=== PATIENT | female | born 1990 | race Caucasian/White ===

== ENCOUNTER 2022-03-11 07:57 | Inpatient (IN) ==
[2022-03-11] MEDS ORDERED: OXYTOCIN 30 UNITS/500 ML BAG IV PRN ×3 (08:01→22:44)
[2022-03-11] MEDS ORDERED: LIDOCAINE 1% LOCAL 20 ML VIAL INFIL PRN (08:01)
--- NOTE | 2022-03-11 08:23 | History & Physical Report ---
Date of Service March 11, 2022 Assessment & Plan (1) Encounter for induction of labor: Plan: -Admit, iv, labs. fhts categ1. start pitocin, consider arom -Manley balloon placed (2) Gestational diabetes: Plan: -Blood glucose 133 on admission. Will do Q4 checks (3) Uterine fibroid: Plan: -Plan to attempt vaginal delivery Admission and Anticipated Discharge Date Admission Date: March 11, 2022 History of Present Illness Chief Complaint: Induction of labor Primary Care Provider: Jamie Torres MD 31 y/o @ 40+ weeks confirmed via ultrasound on 03/08. Here for induction. Complications with this include GDM, fibroids, asthma, and migraines. Has been attending OB appointments regularly. Contractions: none Fluid or Blood loss: none Movement: active Labs - Blood type: A+ - Antibody screen: negative - H.8 - Hct: 38.2 - Wbc: 8.5 - Plt: 158 - Rubella: immune - VDRL/RPR: negative - Gonorrhea: negative - Chlamydia: negative - HIV: negative - HbSAg: negative - GBS: negative -maternal serum AFP: 47.4 on 09/28 -AFP MoM: 1.34 on 09/28 Allergies Allergy/AdvReac Type Severity Reaction Status Date / Time No Known Allergies Allergy Verified 03/10/22 10:37 Home Medications Medication Instructions Recorded Confirmed Type acetone (urine) test (Ketone Urine #50 ea 12/25/21 03/10/22 Rx Test strips) blood sugar diagnostic (OneTouch #150 ea 12/25/21 03/10/22 Rx Verio test strips) blood-glucose meter (OneTouch #1 ea 12/25/21 03/10/22 Rx Verio Flex Meter) lancets 33 gauge (OneTouch Delica #150 ea 12/25/21 03/10/22 Rx Lancets) Benadryl 25 mg PO DAILY PRN Headache 03/11/22 03/11/22 History Vitamin 1 tab PO DAILY 03/11/22 03/11/22 History Vitamin C 1,000 mg PO DAILY 03/11/22 03/11/22 History Zyrtec 10 mg PO DAILY 03/11/22 03/11/22 History magnesium oxide 800 mg PO DAILY 03/11/22 03/11/22 History riboflavin (vitamin B2) 400 mg PO DAILY 03/11/22 03/11/22 History Patient History Medical History (Updated 03/11/22 @ 10:06 by Jeffrey Ortega DO) Depression Surgical History History of laparoscopy S/P appendectomy Family History Father Glaucoma Gout Renal stones Mother Anemia Sister Renal stones Grandmother (Maternal) Spinal muscular atrophy type III Grandmother (Paternal) Glaucoma Migraine headache Social History Smoking Status: Never smoker Second Hand Exposure: No; Do You Dip or Chew Tobacco: No; Hx Alcohol Use: No Hx Substance Use: No Preferred Language: Swiss Communication Ability: Effective Analytical Manager Required: No Beliefs That Will Affect Care: None marital status: marital status details: Colton (34) [phone] Current Living Situation: Spouse Current Living Situation Comment: Lives with - no pets current occupational status: employed 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 Denies breast pain. Denies dysuria. Denies headache or changes in vision. Physical Exam Physical Exam: General: Alert, oriented. No acute distress. Cardiac: Regular rate and rhythm, no murmurs/rubs/gallops. Respiratory: Clear to auscultation bilaterally a/p, no wheezes/rales/rhonchi. No increased work of breathing. Symmetrical chest rise. No respiratory distress. Abdomen: Gravid; Position: posterior, medium Pelvic: Dilation 1.5 cm; Effacement 50; Station -[address] Valdivia Lower Extremities: No lower extremity edema or swelling. No deep calf pain. Caleb's negative bilaterally Results & Data ([facility]) Vital Signs (Past 12 Hours) Vital Signs Pulse BP 03/11/22 08:07 105 H 142/77 H Supervising Physician Co-Signing Physician Notes Resident Physician Supervision Note: I interviewed and examined the patient. Discussed with Dr. Ortega and agree with findings and plan as documented in the note. Any exceptions or clarifications are listed here: 31 y/o G1 at 40 6/7 wga presents for IOL. +FM;denies reg ctx, LOF, VB. PNI: GDM, Has hx FGR that resolved at 32 wks. Has post JESSIKA fibroid that has been stable since around 24 wks. Discussed reasonable to attempt delivery but is possible that it could obstruct labor. If labor progress is abnormal may be related to this. Cat 1, SVE 1.5/50/-2. Will start w/ manley/pit, 35cc manley placed after consent obtained. Epidural PRN, GBS neg. Will recheck BG in 2hrs and then q4 if ok Documented By: Ilene Valdivia MD Resident Activity Tracking Resident Involvement: Resident Care Provided Care Provided: OB Delivery
[2022-03-11 08:33] LABS: Hematocrit (blood only) 38.2 % (34.1-44.9); Hemoglobin 12.8 g/dl (12.0-16.0); Mean Corpuscular Hemoglobin 28.3 pg (25.0-34.0); Mean Corpuscular Hgb Conc 33.5 g/dL (32.0-36.0); Mean Corpuscular Volume 84.5 fL (80.0-100.0); Mean Platelet Volume 10.3 fL (9.4-12.3); Platelet Count 158 K/uL (130-400); RDW Coefficient of Variation 14.4 % (11.5-14.5); RDW Standard Deviation 43.8 fL (36.4-46.3); Red Blood Count 4.52 M/uL (3.93-5.22)
[2022-03-11] MEDS: LACTATED RINGER'S 1,000 ML IV PRN ×3 (10:18→17:40)
[2022-03-11] MEDS ORDERED: ceFAZolin 2000MG 2,000 MG/15 ML SYR IV ONE (11:38)
[2022-03-11] MEDS ORDERED: SODIUM CHLORIDE 0.9% INJ 10 ML VIAL ONE (13:02)
[2022-03-11] MEDS ORDERED: fentaNYL citrate 100 MCG/2 ML VIAL ONE (13:02)
[2022-03-11] MEDS ORDERED: ePHEDrine sulfate 50 MG/ML AMP ONE (13:02)
[2022-03-11] MEDS ORDERED: fentaNYL 2MCG/ML ROPIVACAINE 1.25MG/ML 100 ML BAG EPI ONE (13:03)
[2022-03-11] MEDS ORDERED: LIDOCAINE 2%/EPINEPHRINE 1:200,000 20 ML SDV ONE (13:03)
[2022-03-11] MEDS ORDERED: BUPIVACAINE 0.25% 30 ML VIAL ONE (13:03)
--- NOTE | 2022-03-11 13:11 | Anesthesiology Consultation ---
Date of Service March 11, 2022 Assessment & Plan (1) Encounter for pre-operative examination: Chart Review Chart Review: Acceptable Risk for Labor Epidural History Height/Weight Height: 5 ft 4 in Weight: 89.018 kg Allergies Allergy/AdvReac Type Severity Reaction Status Date / Time No Known Allergies Allergy Verified 03/10/22 10:37 Medications Home Medications Medication Instructions Recorded Confirmed Last Taken acetone (urine) test (Ketone Urine #50 ea 12/25/21 03/10/22 Unknown Test strips) blood sugar diagnostic (OneTouch #150 ea 12/25/21 03/10/22 Unknown Verio test strips) blood-glucose meter (OneTouch #1 ea 12/25/21 03/10/22 Unknown Verio Flex Meter) lancets 33 gauge (OneTouch Delica #150 ea 12/25/21 03/10/22 Unknown Lancets) Benadryl 25 mg PO DAILY PRN Headache 03/11/22 03/11/22 03/10/22 20:00 Vitamin 1 tab PO DAILY 03/11/22 03/11/22 03/11/22 06:40 Vitamin C 1,000 mg PO DAILY 03/11/22 03/11/22 03/11/22 06:45 Zyrtec 10 mg PO DAILY 03/11/22 03/11/22 03/11/22 06:45 magnesium oxide 800 mg PO DAILY 03/11/22 03/11/22 03/11/22 06:45 riboflavin (vitamin B2) 400 mg PO DAILY 03/11/22 03/11/22 03/11/22 06:45 Active Medications Generic Name Dose Route Start Last Admin Trade Name Keli PRN Reason Stop Dose Admin Oxytocin 30 units in 500 mls @ 2 mls/hr 03/11/22 08:06 03/11/22 11:37 Pitocin IV 03/13/22 08:05 0.36 units/hr .Q24H PRN 6 mls/hr Labor Induction/Augmentation Titration Protocol 0.12 UNITS/HR Lactated Ringer's 1,000 mls @ 125 mls/hr 03/11/22 08:01 03/11/22 10:18 Lr IV 03/13/22 08:00 125 mls/hr .Q8H PRN Administration L&D Protocol Protocol Past Medical History Medical History (Updated 03/11/22 @ 13:11 by Giorgio Mo MD) Asthma Depression Gestational diabetes Migraine with aura Past Family History Family History Father Glaucoma Gout Renal stones Mother Anemia Sister Renal stones Grandmother (Maternal) Spinal muscular atrophy type III Grandmother (Paternal) Glaucoma Migraine headache Past Surgical History Surgical History History of laparoscopy S/P appendectomy Social History Smoking Status: Never smoker Do You Dip or Chew Tobacco: No Hx Alcohol Use: No Hx Substance Use: No substance use type: does not use Physical Exam Vital Signs Last Vital Signs Temp 36.8 C 03/11/22 12:06 Pulse 74 03/11/22 12:07 Resp 20 03/11/22 12:06 BP 126/76 03/11/22 12:07 Testing Laboratory Results 03/11/22 08:21 03/11/22 08:21 03/11/22 11:58 POC Glucose 90
[2022-03-11] MEDS ORDERED: NALOXONE HCL 1 MG in SODIUM CHLORIDE 0.9% 1000ML 1,000 ML IV PRN (14:10)
[2022-03-11] MEDS ORDERED: ePHEDrine sulfate 50 MG/ML AMP IV PRN (14:10)
[2022-03-11] MEDS ORDERED: NALOXONE HCL 0.4 MG/1 ML VIAL/CARP IV PRN (14:10)
[2022-03-11] MEDS ORDERED: ONDANSETRON INJ 2 MG/ML 2 ML VIAL IV PRN (14:10)
[2022-03-11] MEDS ORDERED: fentaNYL 2MCG/ML ROPIVACAINE 1.25MG/ML 100 ML BAG EPI PRN (14:10)
--- NOTE | 2022-03-11 14:49 | Labor Progress Brief Note ---
Date of Service March 11, 2022 Subjective comfortable w/ epidural Assessment & Plan (1) Encounter for induction of labor: (2) Uterine fibroid: (3) Gestational diabetes: Plan 31 y/o G1 at 40 6/7 wga admitted for IOL VSS Fetus cat 1 Labor - pit at 6, now s/p arom GDM - BG good, q4 GBS neg epidural in place Admission and Anticipated Discharge Date Admission Date: March 11, 2022 Physical Exam Genitourinary: Manual OB Exam: + cervical dilation 4 cm, + cervical effacement 70%, + station -2 and + amniotic fluid (arom clear) OB Exam Monitor Tracing: + external FHT monitor used, + external uterine monitor used (q3) and + category I (150/mod/+accel/-decel) Results & Data ([facility]) Vital Signs (Past 12 Hours) Vital Signs Temp Pulse Resp BP Pulse Ox 03/11/22 08:05 98.2 F 18 03/11/22 14:45 84 100 03/11/22 14:46 81 124/72 03/11/22 14:40 99 H 117/73 100 03/11/22 14:35 87 100 03/11/22 14:24 16 03/11/22 14:24 16 03/11/22 14:34 86 121/70 03/11/22 14:31 96 H 123/71 03/11/22 14:30 86 100 03/11/22 14:25 89 100 03/11/22 14:23 98 H 120/75 03/11/22 14:16 16 03/11/22 14:16 16 03/11/22 14:18 16 03/11/22 14:18 16 03/11/22 14:20 97 H 16 100 03/11/22 14:21 101 H 117/72 03/11/22 14:12 16 03/11/22 14:12 16 03/11/22 14:14 16 03/11/22 14:14 16 03/11/22 14:08 18 03/11/22 14:08 18 03/11/22 14:19 99 H 118/72 03/11/22 14:17 91 H 122/68 03/11/22 14:15 99 03/11/22 14:15 94 H 03/11/22 14:15 93 H 123/71 03/11/22 14:13 90 119/73 09/08/22 14:11 95 H 121/75 03/11/22 14:10 89 16 100 03/11/22 14:09 82 121/74 03/11/22 14:07 85 120/77 03/11/22 14:05 81 118/77 03/11/22 13:55 82 127/75 03/11/22 13:39 20 03/11/22 13:39 20 03/11/22 13:38 74 135/80 03/11/22 12:06 20 03/11/22 12:06 98.2 F 20 03/11/22 12:07 74 126/76 03/11/22 11:07 18 03/11/22 11:07 18 03/11/22 11:06 83 134/72 03/11/22 08:10 98.2 F 03/11/22 10:07 82 18 128/87 03/11/22 09:05 105 H 130/76 03/11/22 08:37 106 H 134/89 03/11/22 08:07 105 H 142/77 H Coding Level of Care Code None Diagnoses Encounter for induction of labor Z34.90 Uterine fibroid D25.9 Gestational diabetes O24.419
--- NOTE | 2022-03-11 17:40 | Labor Progress Brief Note ---
Date of Service March 11, 2022 Subjective comfortable w/ epidural Assessment & Plan (1) Encounter for induction of labor: (2) Uterine fibroid: (3) Gestational diabetes: Plan 31 y/o G1 at 40 6/7 wga admitted for IOL VSS Fetus cat 1 Labor - pit at 6, progression noted. Station seems progressed from last visit. Continue induction GDM - BG good, q4 GBS neg epidural in place Admission and Anticipated Discharge Date Admission Date: March 11, 2022 Physical Exam Genitourinary: Manual OB Exam: + cervical dilation 5 cm, + cervical effacement 80% and + station -1 OB Exam Monitor Tracing: + external FHT monitor used, + external uterine monitor used (q3-5) and + category II (150/mod/+accel/intermit variable decel) Results & Data ([facility]) Vital Signs (Past 12 Hours) Vital Signs Temp Pulse Resp BP Pulse Ox 03/11/22 08:05 98.2 F 18 03/11/22 17:30 94 H 100 03/11/22 17:29 91 H 132/78 03/11/22 17:01 16 03/11/22 17:01 98.4 F 16 03/11/22 17:25 89 99 03/11/22 17:20 86 98 03/11/22 17:15 83 99 03/11/22 17:16 80 130/71 03/11/22 17:10 81 99 03/11/22 17:05 85 99 03/11/22 17:00 82 99 03/11/22 16:59 81 110/55 L 03/11/22 16:55 80 99 03/11/22 16:50 87 99 03/11/22 16:28 16 03/11/22 16:28 16 03/11/22 16:45 80 99 03/11/22 16:44 81 111/62 03/11/22 16:40 80 100 03/11/22 16:35 80 100 03/11/22 16:30 77 100 03/11/22 16:31 76 108/62 03/11/22 16:25 92 H 98 03/11/22 16:20 97 H 99 03/11/22 16:15 94 H 129/78 100 03/11/22 16:10 83 99 03/11/22 16:05 88 99 03/11/22 15:58 16 03/11/22 15:58 16 03/11/22 16:00 84 98 03/11/22 15:59 85 102/61 03/11/22 15:55 75 100 03/11/22 15:31 16 03/11/22 15:31 16 03/11/22 15:50 88 100 03/11/22 15:01 97.7 F 03/11/22 15:45 76 100 03/11/22 15:44 91 H 104/63 03/11/22 14:59 16 03/11/22 14:59 16 03/11/22 15:40 101 H 99 03/11/22 15:35 91 H 98 03/11/22 15:30 84 123/76 98 03/11/22 15:25 89 97 03/11/22 15:20 82 98 03/11/22 15:15 86 123/73 98 03/11/22 15:10 85 99 03/11/22 15:05 78 99 03/11/22 15:00 89 119/73 99 03/11/22 14:55 83 100 03/11/22 14:50 86 100 03/11/22 14:45 84 100 03/11/22 14:46 81 124/72 03/11/22 14:40 99 H 117/73 100 03/11/22 14:35 87 100 03/11/22 14:24 16 03/11/22 14:24 16 03/11/22 14:34 86 121/70 03/11/22 14:31 96 H 123/71 03/11/22 14:30 86 100 03/11/22 14:25 89 100 03/11/22 14:23 98 H 120/75 03/11/22 14:16 16 03/11/22 14:16 16 03/11/22 14:18 16 03/11/22 14:18 16 03/11/22 14:20 97 H 16 100 03/11/22 14:21 101 H 117/72 03/11/22 14:12 16 03/11/22 14:12 16 03/11/22 14:14 16 03/11/22 14:14 16 03/11/22 14:08 18 03/11/22 14:08 18 03/11/22 14:19 99 H 118/72 03/11/22 14:17 91 H 122/68 09/08/22 14:15 99 03/11/22 14:15 94 H 03/11/22 14:15 93 H 123/71 03/11/22 14:13 90 119/73 03/11/22 14:11 95 H 121/75 03/11/22 14:10 89 16 100 03/11/22 14:09 82 121/74 03/11/22 14:07 85 120/77 03/11/22 14:05 81 118/77 03/11/22 13:55 82 127/75 03/11/22 13:39 20 03/11/22 13:39 20 03/11/22 13:38 74 135/80 03/11/22 12:06 20 03/11/22 12:06 98.2 F 20 03/11/22 12:07 74 126/76 03/11/22 11:07 18 03/11/22 11:07 18 03/11/22 11:06 83 134/72 03/11/22 08:10 98.2 F 03/11/22 10:07 82 18 128/87 03/11/22 09:05 105 H 130/76 03/11/22 08:37 106 H 134/89 03/11/22 08:07 105 H 142/77 H Coding Level of Care Code None Diagnoses Encounter for induction of labor Z34.90 Uterine fibroid D25.9 Gestational diabetes O24.419
[2022-03-11] MEDS ORDERED: ERYTHROMYCIN OP OINT 1 GM PKT ONE (21:14)
[2022-03-11 22:41] LABS: Base Excess Cord Arterial Bld -4.9 mEq/L (-9-1.8); CO2 Cord Arterial Blood 39 mmHg (39.1-73.5); HCO3 Cord Arterial Blood 21 mmol/L (19.7-28.5); Oxygen Sat Cord Arterial Blood < 60.0 % (<60); PO2 Cord Arterial Blood 27 mmHg (4.1-31.7); pH Cord Arterial Blood 7.33 (7.1-7.38)
[2022-03-11] MEDS ORDERED: DIPHTHERIA/TETANUS/PERTUSSIS 0.5 ML SYR/VIAL IM ONE (22:44)
[2022-03-11] MEDS ORDERED: HYDROCORTISONE ACETATE 25 MG SUPP PR PRN (22:44)
[2022-03-11] MEDS ORDERED: BENZOCAINE 20% AER SPR 82.5 GM CAN EXT PRN (22:44)
[2022-03-11] MEDS ORDERED: ACETAMINOPHEN 325 MG TAB PO PRN (22:44)
--- NOTE | 2022-03-11 22:46 | Delivery Summary ---
Vaginal Delivery Summary Date of Service March 11, 2022 Vaginal Delivery Summary and 1st Degree LAC PREOPERATIVE DIAGNOSIS: 1. Single intrauterine at 40 6/7 wga 2. A1GDM 3. Fibroid uterus POSTOPERATIVE DIAGNOSIS: 1. Single intrauterine at 40 6/7 wga 2. A1GDM 3. Fibroid uterus 4. Delivered PROCEDURE: 1. Normal spontaneous vaginal delivery. SURGEON: Ilene Valdivia MD ANESTHESIA: Epidural. ESTIMATED BLOOD LOSS: 300 mL FLUIDS: Continuous LR. URINE OUTPUT: None. COMPLICATIONS: 1.5min Shoulder dystocia CONDITION: Stable. INDICATIONS: 31 y/o G1 at 40 6/7 wga presented for IOL this AM. Induction was started with manley bulb and pitocin. Following manley bulb expulsion, pitocin was titrated. She received an epidural for pain control and then underwent AROM. She progressed to complete and desired to push FINDINGS: A viable female , weight pending with Apgars of 8 and 8 at 1 and 5 minutes respectively. SPECIMEN: Cord blood, cord gases, placenta OPERATIVE REPORT: The patient progressed to 10 cm, 100% effaced and +2 station, pushed over intact perineum with anesthesia to deliver a viable female infant, weight and Apgars as above. Head of delivered in GONZÁLEZ position. Loose nuchal cord was reduced x 2. Gentle downward traction of shoulders did not deliver the anterior shoulder easily. Shoulder dystocia was called. Head of bed was laid flat and McRobert's and suprapubic pressure were performed in order to deliver the anterior shoulder. Remainder of body delivered without difficulty. was delivered to maternal abdomen and nursing staff. Delayed cord clamping was deferred as was not immediately vigorous. Cord was clamped and cut. Cord blood was obtained. Placenta delivered spontaneously intact with 3-vessel cord. IV oxytocin and fundal massage were given for excellent hemostasis. Vagina, cervix, perineum, and placenta were inspected. A first degree and right labial laceration were noted and repaired with 3-0 and 4- 0 vicryl respectively. There was excellent hemostasis. Sponge and needle counts correct x2. No sponges were left behind. Mother and stable in immediate period. [facility] Vaginal Delivery Charge Vaginal Delivery Codes: 16115 global code for the antepartum, delivery, and post- Delivery Type Details: and 1st Degree LAC
[2022-03-11] MEDS: IBUPROFEN 600 MG TAB PO PRN (23:03)
[2022-03-12] MEDS ORDERED: BUTORPHANOL TARTRATE 1 MG/ML VIAL ONE (02:50)
[2022-03-12] MEDS ORDERED: METHYLERGONOVINE MALEATE 0.2 MG/ML AMP IM STA (02:57)
[2022-03-12] MEDS ORDERED: miSOPROStoL 200 MCG TAB ONE (03:11)
[2022-03-12] MEDS ORDERED: miSOPROStoL 200 MCG TAB PR ONE (03:11)
[2022-03-12] MEDS ORDERED: BUTORPHANOL TARTRATE 1 MG/ML VIAL IV ONE (03:14)
--- NOTE | 2022-03-12 03:16 | Communication Note ---
Date of Service: March 12, 2022 Called by nursing that patient was hemorrhaging. Upon my arrival pt was back in bed from going to bathroom when she had multiple large gushes of clot and blood. Pt denied lightheadedness or dizziness. VSS and wnl. 2nd IV and bag of oxytocin was started. Fundus was firm at umbilicus but moderate gush noted. Bimanual exam was performed a moderate amount of clot was removed so suspect lower uterine segment atony. 1mg stadol and methergine ordered, 1000mcg cytotec placed CA at this time. Continued fundal massage performed throughout this time with improvement in bleeding. Methergine and stadol were administered, additional bimanual exam was performed to remove additional moderate amount of clot. Bleeding improved and remained stable over multiple fundal checks. VSS remained stable throughout. Stat CBC ordered, will complete a 24 hr methergine course. Chux pads weighed once stable and EBL ~600
[2022-03-12] MEDS ORDERED: SODIUM CHLORIDE 0.9% 250 ML IV PRN (03:18)
[2022-03-12] MEDS ORDERED: OXYTOCIN 20 UNITS in LACTATED RINGER'S 1,000 ML IV SCH (03:30)
[2022-03-12] MEDS ORDERED: OXYTOCIN 30 UNITS/500 ML BAG IV SCH (03:30)
[2022-03-12 03:54] LABS: Hematocrit (blood only) 37.6 % (34.1-44.9); Hemoglobin 12.3 g/dl (12.0-16.0); Mean Corpuscular Hemoglobin 28.3 pg (25.0-34.0); Mean Corpuscular Hgb Conc 32.7 g/dL (32.0-36.0); Mean Corpuscular Volume 86.4 fL (80.0-100.0); Mean Platelet Volume 10.8 fL (9.4-12.3); Platelet Count 159 K/uL (130-400); RDW Coefficient of Variation 14.5 % (11.5-14.5); RDW Standard Deviation 45.1 fL (36.4-46.3); Red Blood Count 4.35 M/uL (3.93-5.22); White Blood Count 19.17 K/ul (4.8-10.8)
[2022-03-12] MEDS: IBUPROFEN 600 MG TAB PO PRN ×4 (03:55→20:26)
--- NOTE | 2022-03-12 07:35 | Obstetrical Progress Note ---
Date of Service <Jeffrey ScottRylan Ortega DO - Last Filed: 03/12/22 07:35> March 12, 2022 Assessment & Plan <Jeffrey ScottRylan Ortega DO - Last Filed: 03/12/22 07:35> (1) Encounter for care and examination after delivery: - Pain well controlled with PRN meds - Routine care -- OOB, ambulation, diet progression as tolerated - After discharge will have 6 week follow-up with Dr. Valdivia (2) hemorrhage: -Given 1mg stadol, 1,000 mcg cytotec, methergine overnight -Continue oxytocin -Hgb stable this morning, elevated leukocytosis, continue to trend -Patient reports feeling warm though does not currently have a fever -Vitals are stable at this time. No need for antibitoics at this time. -Encourage patient to get up and ambulate and to urinate -If patient continues to be afraid of urinating then a straight cath may be needed. <Ilene Valdivia MD - Last Filed: 03/12/22 07:57> (1) Encounter for care and examination after delivery: (2) hemorrhage: Subjective <Jeffrey Khoa Ortega DO - Last Filed: 03/12/22 07:35> Ambulation: limited ambulation Voiding: voiding difficulty Passing Gas:: Yes Diet Tolerance:: regular diet Lochia:: Large Feeding Type:: breast feeding Current Pain Level(1-10): 4 Patient is a 31 y/o female who is now PPD # 1 following spontaneous vaginal delivery + IOP at 40 weeks and 6 days. Reports that she is anxious right now due to her post hemorrhage. She is afraid to go to the bathroom and has been holding in having to urinate. She also states that she felt cold last night and put on a lot of blankets and this morning feels hot. Moderate abdominal cramping & 4/10 pain well managed on analgesics. Tolerating meals overnight and able to ambulate but is not ambulating currently due to fear of bleeding more. Able to pass gas. Currently breast feeding. Review of Systems Denies fever, chills +sweats Denies shortness of breath, difficulty breathing, chest pain, palpitations, chest pressure. Denies breast pain. Denies dysuria. Denies headache or changes in vision. Physical Exam <Jeffrey Ortega DO - Last Filed: 03/12/22 07:35> General: Alert, oriented. No acute distress. Cardiac: Regular rate and rhythm, no murmurs/rubs/gallops. Respiratory: Clear to auscultation bilaterally a/p, no wheezes/rales/rhonchi. No increased work of breathing. Symmetrical chest rise. No respiratory distress. Abdomen: Soft, nontender, nondistended. Bowel sounds present. Uterus: Uterine fundus firm, palpable 1 cm below umbilicus. Lower Extremities: No lower extremity edema or swelling. No deep calf pain. Caleb's negative bilaterally. Results & Data ([facility]) <Jeffrey Ortega DO - Last Filed: 03/12/22 07:35> Vital Signs (Past 12 Hours) Vital Signs Temp Pulse Pulse Resp BP BP Pulse Ox 03/12/22 04:05 37.6 C H 89 20 127/83 100 03/12/22 00:40 36.9 C 91 H 20 117/71 96 03/12/22 00:18 103 H 120/65 03/11/22 23:43 105 H 131/67 03/11/22 23:13 97 H 138/73 03/11/22 23:02 104 H 134/68 03/11/22 22:47 95 H 134/71 03/11/22 22:31 104 H 138/78 03/11/22 22:30 103 H 185/154 H 03/11/22 22:15 122 H 99 03/11/22 22:14 109 H 148/79 H 03/11/22 22:10 110 H 99 03/11/22 22:11 112 H 132/75 03/11/22 22:05 110 H 100 03/11/22 22:00 99 03/11/22 22:00 106 H 03/11/22 22:00 101 H 138/74 03/11/22 21:56 106 H 202/84 H 03/11/22 21:55 106 H 99 03/11/22 21:50 113 H 99 03/11/22 21:45 105 H 99 03/11/22 21:46 103 H 185/79 H 03/11/22 21:40 120 H 99 03/11/22 21:35 115 H 100 03/11/22 21:30 99 03/11/22 21:30 115 H 03/11/22 21:30 120 H 138/92 03/11/22 21:25 135 H 100 03/11/22 21:20 104 H 100 03/11/22 21:15 103 H 99 03/11/22 21:14 98 H 142/82 H 03/11/22 21:10 88 99 03/11/22 21:05 99 H 100 03/11/22 21:00 36.9 C 118 H 99 03/11/22 21:01 108 H 136/82 03/11/22 20:55 110 H 99 03/11/22 20:50 101 H 100 03/11/22 20:45 100 03/11/22 20:45 102 H 03/11/22 20:45 111 H 109/74 03/11/22 20:40 100 H 99 03/11/22 20:35 90 99 03/11/22 20:30 90 131/78 98 03/11/22 20:25 97 H 98 03/11/22 20:20 98 H 99 03/11/22 20:19 105 H 121/62 03/11/22 20:15 100 H 98 03/11/22 20:10 101 H 98 03/11/22 20:05 94 H 98 03/11/22 20:00 106 H 98 03/11/22 20:01 110 H 119/72 03/11/22 19:55 94 H 98 03/11/22 19:50 96 H 98 03/11/22 19:45 91 H 123/70 99 03/11/22 19:40 91 H 99 03/11/22 19:35 103 H 100 03/11/22 19:30 97 H 100 03/11/22 19:29 115 H 133/84 03/11/22 19:25 100 H 100 O2 Del Method 03/12/22 04:05 Room Air 03/12/22 00:40 Room Air 03/12/22 00:18 03/11/22 23:43 03/11/22 23:13 03/11/22 23:02 03/11/22 22:47 03/11/22 22:31 03/11/22 22:30 03/11/22 22:15 03/11/22 22:14 03/11/22 22:10 03/11/22 22:11 03/11/22 22:05 03/11/22 22:00 03/11/22 22:00 03/11/22 22:00 03/11/22 21:56 03/11/22 21:55 03/11/22 21:50 03/11/22 21:45 03/11/22 21:46 03/11/22 21:40 03/11/22 21:35 03/11/22 21:30 03/11/22 21:30 03/11/22 21:30 03/11/22 21:25 03/11/22 21:20 03/11/22 21:15 03/11/22 21:14 03/11/22 21:10 03/11/22 21:05 03/11/22 21:00 03/11/22 21:01 03/11/22 20:55 03/11/22 20:50 03/11/22 20:45 03/11/22 20:45 03/11/22 20:45 03/11/22 20:40 03/11/22 20:35 03/11/22 20:30 03/11/22 20:25 03/11/22 20:20 03/11/22 20:19 03/11/22 20:15 03/11/22 20:10 03/11/22 20:05 03/11/22 20:00 03/11/22 20:01 03/11/22 19:55 03/11/22 19:50 03/11/22 19:45 03/11/22 19:40 03/11/22 19:35 03/11/22 19:30 03/11/22 19:29 03/11/22 19:25 <Ilene Valdivia MD - Last Filed: 03/12/22 07:57> Co-Signing Physician Notes Resident Physician Supervision Note: I interviewed and examined the patient. Discussed with Dr. Ortega and agree with findings and plan as documented in the note. Any exceptions or clarifications are listed here: PP1 s/p c/b PPH overnight requiring pit, cytotec, methergine. VSS, CBC at time of hemorrhage ok, 9am pending. Bleeding has been small since then, cramping improved. VSS, exam benign and wnl. Continue 24hr course of methergine. Encouraged to ambulate and not hold urine as that can actually worsen bleeding. Continue routine pp care Documented By: Ilene Valdivia MD Resident Activity Tracking <Jeffrey Ortega, - Last Filed: 03/12/22 07:35> Resident Involvement: Resident Care Provided Care Provided: OB Delivery
--- NOTE | 2022-03-12 08:23 | Anesthesia Procedure Note ---
Date of Service March 12, 2022 Anesthesia Post Epidural Note Vital Signs Vital Signs: Temp Pulse Resp BP Pulse Ox O2 Del Method 98.4 F 63 16 125/68 99 03/12/22 07:27 03/12/22 07:27 03/12/22 07:27 03/12/22 07:27 03/12/22 07:03/12/22 07:27 Pain Intensity Bilateral Abdomen: Pain Intensity: 2 Notes Mental Status: alert / awake / arousable and participated in evaluation Nausea / Vomiting: adequately controlled Pain: adequately controlled Airway Patency, RR, SpO2: stable & adequate BP & HR: stable & adequate Hydration State: stable & adequate Neuraxial Anesthesia: was administered and sensory block is resolving Anesthetic Complications: no major complications apparent and Pt Satisfied with anesthetic care Epidural: Removed without complications and With tip intact
[2022-03-12] MEDS: FERROUS SULFATE 325 MG TAB PO SCH (08:35)
[2022-03-12] MEDS: METHYLERGONOVINE MALEATE 0.2 MG TAB PO SCH ×3 (08:35→20:27)
[2022-03-12] MEDS: PRENATAL VITAMIN 1 TAB PO SCH (08:35)
[2022-03-12] MEDS: DOCUSATE SODIUM 100 MG CAP PO SCH ×2 (08:35→20:25)
[2022-03-12 08:55] LABS: Hematocrit (blood only) 30.2 % (34.1-44.9); Hemoglobin 10.2 g/dl (12.0-16.0); Mean Corpuscular Hemoglobin 28.4 pg (25.0-34.0); Mean Corpuscular Hgb Conc 33.8 g/dL (32.0-36.0); Mean Corpuscular Volume 84.1 fL (80.0-100.0); Mean Platelet Volume 10.4 fL (9.4-12.3); Platelet Count 134 K/uL (130-400); RDW Coefficient of Variation 14.4 % (11.5-14.5); RDW Standard Deviation 44.4 fL (36.4-46.3); Red Blood Count 3.59 M/uL (3.93-5.22); White Blood Count 16.52 K/ul (4.8-10.8)
[2022-03-12] MEDS ORDERED: bisacodyL 5 MG TABEC PO SCH (20:00)
[2022-03-13] MEDS ORDERED: bisacodyL 10 MG SUPP PR PRN
[2022-03-13 06:56] LABS: Basophils # (auto) 0.02 K/uL (0-0.2); Basophils % (auto) 0.2 %; Eosinophils # (auto) 0.13 K/uL (0-0.50); Eosinophils % (auto) 1.1 %; Hematocrit (blood only) 27.1 % (34.1-44.9); Immature Granulocytes # (auto) 0.06 K/uL (0.00-0.02); Immature Granulocytes % (auto) 0.5 %; Lymphocytes # (auto) 2.09 K/uL (1.2-3.4); Lymphocytes % (auto) 17.6 %; Mean Corpuscular Hgb Conc 33.2 g/dL (32.0-36.0); Mean Corpuscular Volume 84.2 fL (80.0-100.0); Mean Platelet Volume 10.8 fL (9.4-12.3); Monocytes # (auto) 0.71 K/uL (0.24-0.82); Neutrophils # (auto) 8.84 K/uL (1.4-6.5); Neutrophils % (auto) 74.6 %; Platelet Count 111 K/uL (130-400); RDW Coefficient of Variation 14.7 % (11.5-14.5); RDW Standard Deviation 45.1 fL (36.4-46.3); Red Blood Count 3.22 M/uL (3.93-5.22); White Blood Count 11.85 K/ul (4.8-10.8)
--- NOTE | 2022-03-13 07:50 | Obstetrical Progress Note ---
Date of Service <Jeffrey ScottRylan Ortega DO - Last Filed: 03/13/22 08:11> March 13, 2022 Assessment & Plan <Jeffrey ScottRylan Ortega DO - Last Filed: 03/13/22 08:11> (1) Encounter for care and examination after delivery: - Feels well today. Eating well, voiding well, ambulating well. - Pain well controlled with prn pain meds - Routine care -- OOB, ambulation, diet progression as tolerated - After discharge will have 6 week follow-up with Dr. Valdivia - Can be D/C later today (2) hemorrhage: -Given 1mg stadol, 1,000 mcg cytotec, methergine, and oxytocin yesterday. -Hgb stable this morning 9.0 (10.2 yesterday) , leukocytosis trending down, continue to trend -Vitals are stable at this time. -Patient is less anxious today and is able to get ambulate and urinate on her own. <Yvette Garcia MD, FACOG - Last Filed: 03/13/22 08:48> (1) Encounter for care and examination after delivery: (2) hemorrhage: Subjective <Jeffrey Ortega DO - Last Filed: 03/13/22 08:11> Ambulation: ambulating normally Voiding: no voiding problems Passing Gas:: Yes Diet Tolerance:: regular diet Lochia:: Small Feeding Type:: breast feeding Current Pain Level(1-10): 0 Patient is a 31 y/o female G1 who is now PPD # 2 following spontaneous vaginal delivery +IOP at 40 weeks. Reports feeling well overall this morning. No abdominal cramping & 0/10 pain well managed on analgesics. Voiding well. Tolerating meals overnight and able to ambulate some. Able to pass gas and has had a normal bowel movement. Has some persistent lochia with some improvement this morning. Currently breast feeding. States that she feels less anxious today and is feeling better. Physical Exam <Jeffrey Ortega DO - Last Filed: 03/13/22 08:11> General: Alert, oriented. No acute distress. Cardiac: Regular rate and rhythm, no murmurs/rubs/gallops. Respiratory: Clear to auscultation bilaterally a/p, no wheezes/rales/rhonchi. No increased work of breathing. Symmetrical chest rise. No respiratory distress. Abdomen: Soft, nontender, nondistended. Bowel sounds present. Uterus: Uterine fundus firm, palpable 2 cm below umbilicus. Lower Extremities: No lower extremity edema or swelling. No deep calf pain. Caleb's negative bilaterally. Results & Data ([facility]) <Jeffrey Ortega DO - Last Filed: 03/13/22 08:11> Vital Signs (Past 12 Hours) Vital Signs Temp Pulse Resp BP Pulse Ox O2 Del Method 03/12/22 20:00 36.6 C 98 H 16 101/67 98 Room Air <Yvette Garcia MD, FACOG - Last Filed: 03/13/22 08:48> Co-Signing Physician Notes Resident Physician Supervision Note: I was present with Dr. Ortega during the history and exam. I discussed the case with the resident and agree with the findings and plan as documented in the note. Any exceptions or clarifications are listed here: [None] Documented By: Yvette Garcia MD, FACOG Resident Activity Tracking <Jeffrey Ortega DO - Last Filed: 03/13/22 08:11> Resident Involvement: Resident Care Provided Care Provided: OB Delivery
[2022-03-13] MEDS: PRENATAL VITAMIN 1 TAB PO SCH (08:39)
[2022-03-13] MEDS: IBUPROFEN 600 MG TAB PO PRN (08:39)
[2022-03-13] MEDS: DOCUSATE SODIUM 100 MG CAP PO SCH (08:40)
[2022-03-13] MEDS: FERROUS SULFATE 325 MG TAB PO SCH (08:40)
== END 2022-03-13 13:20 | disposition home or self-care (01) | DRG 806 ==
LOC: 4S1 07:57 → 4E2 03-12 00:44

== ENCOUNTER 2025-01-15 07:51 | Inpatient (IN) ==
[2025-01-15] MEDS ORDERED: OXYTOCIN 30 UNITS/NSS 30 UNITS/500 ML BAG IV PRN (08:16)
[2025-01-15] MEDS ORDERED: LIDOCAINE 1% LOCAL 20 ML VIAL INFIL PRN (08:16)
[2025-01-15] MEDS ORDERED: SODIUM CHLORIDE 0.9% 100 ML IV PRN (08:29)
--- NOTE | 2025-01-15 08:52 | History & Physical Report ---
Date of Service January 15, 2025 Assessment & Plan (1) Normal labor: Plan: Pt is a 34yo at 39w 2d with hx of GDM presenting for induction of labor Routine labs ordered Pitocin ordered Epidural placement ordered Monitor tracing Expectant managment for labor GBS +, penicillin ordered Admission and Anticipated Discharge Date Admission Date: January 15, 2025 History of Present Illness Primary Care Provider: Sukhjinder Montiel DO Patricia is a 34y/o female currently at 39w2d with an MARGARET 01/20/25 who is here for induction of labor. Her is complicated by GDM. Having contractions every 60 minutes; adequate movement; no fluid loss; no bloody show External FHT and external uterine monitors used; Category 1 tracing; FHT 140bpm with moderate variability, accelerations present, decelerations absent Had regular appointments with OB. Labs Lab Results OB Labs: Blood Type A Positive 06/21/24 Antibody Screen NEGATIVE 06/21/24 Hgb 12.5 g/dl (12.0-16.0) 11/01/24 Hct 37.4 % (37.0-47.0) 11/01/24 MCV 86.6 fL (80.0-100.0) 06/21/24 Plt Count 237 K/uL (130-400) 06/21/24 Rubella IgG Antibody Immune (Immune) 06/21/24 Treponema pallidum Ab Negative (Negative) 11/01/24 Hep Bs Antigen Negative (Negative) 06/21/24 Hepatitis C Antibody Negative (Negative) 06/21/24 HIV 1&2 Ab/P24 Ag 4thGn Negative (Negative) 06/21/24 Glucose 1 Hr 50 gm 148 mg/dl (70-130) H 08/14/24 Maternal Serum AFP 40.1 ng/mL 08/14/24 OB Optional Labs: Chlamydia trachomatis RNA Not Detected (NotDetected) 06/21/24 Neisseria gonorrhoeae RNA Not Detected (NotDetected) 06/21/24 Alpha Fetoprotein Triple Screen SEE NOTE 08/14/24 Labs Reviewed: low risk cfdna - sln prior preg 289 gene genetic screening neg - sln CF: negative SMA: negative GBS: positive Review of Systems : Denies fever, chills, sweats Denies shortness of breath, difficulty breathing, chest pain, palpitations, chest pressure. Denies breast pain. Denies dysuria. Denies headache Allergies Allergy/AdvReac Type Severity Reaction Status Date / Time No Known Allergies Allergy Verified 01/14/25 15:31 Home Medications Medication Instructions Recorded Confirmed Type magnesium 200 mg tablet 800 mg PO DAILY 04/27/23 01/15/25 History riboflavin (vitamin B2) 400 mg 400 mg PO DAILY 04/27/23 01/15/25 History tablet albuterol sulfate 90 mcg/actuation 2 puff inhalation Q6H PRN 06/17/23 01/15/25 Rx aerosol inhaler shortness of breath or wheezing #8.5 grams PNV no.[id number] 1 tab PO DAILY 06/15/24 01/15/25 History [ Gummies] acetone (urine) test (Ketone Urine #50 ea 08/27/24 01/14/25 Rx Test strips) blood-glucose sensor (Dexcom G7 #3 ea 08/27/24 01/14/25 Rx Sensor device) blood sugar diagnostic (OneTouch #150 ea 11/08/24 01/14/25 Rx Verio test strips) Patient History Medical History (Updated 01/15/25 @ 08:50 by Ry Romero MD) History of chicken pox Migraine with aura Asthma Uses intrauterine device for control Placed 2022 hemorrhage Depression Surgical History History of laparoscopy S/P appendectomy Family History Father Glaucoma Gout Renal stones Mother Anemia Breast cancer, Onset Age: 52 Sister Renal stones Grandmother (Maternal) Spinal muscular atrophy type III Grandmother (Paternal) Glaucoma Migraine headache Breast cancer, Onset Age: 75 Denies family history of Ovarian cancer Prostate cancer Diabetes Myocardial infarction Lung cancer Colorectal cancer Hypertension Stroke Social History Smoking Status: Never smoker Second Hand Exposure: No; Do You Dip or Chew Tobacco: No; Hx Alcohol Use: No Hx Substance Use: No Preferred Language: Senegalese Communication Ability: Effective Visual Impairment: Limited Hearing Ability: Normal Yard Worker Required: No Beliefs That Will Affect Care: None marital status: marital status details: Colton (38) [phone] Current Living Situation: Spouse and Family Current Living Situation Comment: Lives with , child, no pets current occupational status: employed 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 Skin: warm, dry, intact Heart: S1/S2 heard, regular, no m/r/g Lungs: equal air entry bilaterally, no rales/rhonchi/wheezes Abd: Normoactive BS, soft, NT/ND, gravid uterus Ext: warm, no clubbing/cyanosis or edema Neuro: nonfocal, speech intact, no facial droop, moving all extremities on command : FHR baseline 140, moderate variability, accelerations present, decelerations absent, rare contractions Results & Data Vital Signs (Past 12 Hours) Vital Signs Temp Pulse Resp BP 01/15/25 08:11 104 H 118/73 01/15/25 08:04 36.9 C 20 Supervising Physician Co-Signing Physician Notes Resident Physician Supervision Note: I interviewed and examined the patient. Discussed with Dr. Romero and agree with findings and plan as documented in the note. Any exceptions or clarifications are listed here: [ ] Documented By: Zainab Arriaza MD, FACOG Resident Activity Tracking Resident Involvement: Resident Care Provided Care Provided: OB Delivery
[2025-01-15 08:58] LABS: Hematocrit (blood only) 37.7 % (37.0-47.0); Hemoglobin 13.0 g/dl (12.0-16.0); Mean Corpuscular Hemoglobin 29.5 pg (25.0-34.0); Mean Corpuscular Volume 85.5 fL (80.0-100.0); Platelet Count 138 K/uL (130-400); RDW Standard Deviation 43.6 fL (36.4-46.3); Red Blood Count 4.41 M/uL (4.20-5.40); White Blood Count 7.07 K/ul (4.8-10.8)
[2025-01-15] MEDS: LACTATED RINGER'S 1,000 ML IV PRN (09:03)
[2025-01-15] MEDS: PENICILLIN GK 6 MU in DEXTROSE 5% 250 ML IV STA (09:04)
[2025-01-15] MEDS: OXYTOCIN 30 UNITS/NSS 30 UNITS/500 ML BAG IV PRN ×2 (09:06→18:30)
[2025-01-15] MEDS: PENICILLIN GK 3 MU in DEXTROSE 5% 100 ML IV PRN (12:37)
[2025-01-15] MEDS ORDERED: SODIUM CHLORIDE 0.9% PF INJ 10 ML VIAL EPI PRN (13:09)
[2025-01-15] MEDS ORDERED: ROPIVACAINE 0.5% PF 5 MG/ML 20 ML VIAL EPI PRN (13:09)
[2025-01-15] MEDS ORDERED: BUPIVACAINE 0.25% PF 30 ML VIAL EPI PRN (13:09)
[2025-01-15] MEDS ORDERED: NALOXONE HCL 0.4 MG/1 ML VIAL/CARP IV PRN (13:09)
[2025-01-15] MEDS ORDERED: BUPIVACAINE 0.25% PF 30 ML VIAL EPI STA (13:09)
[2025-01-15] MEDS ORDERED: SODIUM CHLORIDE 0.9% PF INJ 10 ML VIAL EPI STA (13:09)
[2025-01-15] MEDS ORDERED: NALBUPHINE HCL INJ 10 MG/ML AMP IV PRN (13:09)
[2025-01-15] MEDS ORDERED: diphenhydrAMINE 50 MG/ML VIAL IV PRN (13:09)
[2025-01-15] MEDS ORDERED: NALOXONE HCL 1 MG in SODIUM CHLORIDE 0.9% 1,000 ML IV PRN (13:09)
[2025-01-15] MEDS ORDERED: ONDANSETRON INJ 2 MG/ML 2 ML VIAL IV PRN (13:09)
[2025-01-15] MEDS ORDERED: LIDOCAINE 2% MPF LOCAL 5 ML VIAL EPI PRN (13:09)
[2025-01-15] MEDS ORDERED: LIDOCAINE 2%/EPINEPHRINE 1:200,000 20 ML PF EPI STA (13:09)
[2025-01-15] MEDS ORDERED: fentANYL 2 MCG/ML BUPIVacaine 0.125%-NSS 100ML BAG EPI PRN (13:09)
--- NOTE | 2025-01-15 13:09 | Anesthesiology Consultation ---
Date of Service January 15, 2025 Assessment & Plan ASA ASA2 Proposed Anesthesia Anesthesia Type: Labor Epidural Risk / Benefits Reviewed With: PT / POA / Parent / Guardian, Accepts Plan and Informed Consent Obtained History Height/Weight Height: 5 ft 4 in Weight: 93.894 kg Allergies Allergy/AdvReac Type Severity Reaction Status Date / Time No Known Allergies Allergy Verified 01/14/25 15:31 Medications Home Medications Medication Instructions Recorded Confirmed Last Taken magnesium 200 mg tablet 800 mg PO DAILY 04/27/23 01/15/25 01/14/25 08:00 riboflavin (vitamin B2) 400 mg 400 mg PO DAILY 04/27/23 01/15/25 01/14/25 08:00 tablet albuterol sulfate 90 mcg/actuation 2 puff inhalation Q6H PRN 06/17/23 01/15/25 Unknown aerosol inhaler shortness of breath or wheezing #8.5 grams PNV [id number] 1 tab PO DAILY 06/15/24 01/15/25 01/14/25 08:00 [ Gummies] acetone (urine) test (Ketone Urine #50 ea 08/27/24 01/14/25 Unknown Test strips) blood-glucose sensor (Dexcom G7 #3 ea 08/27/24 01/14/25 Unknown Sensor device) blood sugar diagnostic (OneTouch #150 ea 11/08/24 01/14/25 Unknown Verio test strips) Active Medications Generic Name Dose Route Start Last Admin Trade Name Freq PRN Reason Stop Dose Admin Oxytocin 30 units in 500 mls @ 12 mls/hr 01/15/25 08:16 01/15/25 12:30 Pitocin 30 Units/Nss IV 01/17/25 08:15 0.72 units/hr .Q24H PRN 12 mls/hr Labor Induction/Augmentation Titration Protocol 0.72 UNITS/HR Lactated Ringer's 1,000 mls @ 125 mls/hr 01/15/25 08:16 01/15/25 12:40 Lr IV 01/17/25 08:15 999 mls/hr .Q8H PRN Infusion L&D Protocol Protocol Penicillin G Potassium 3 mu/ 106 mls @ 100 mls/hr 01/15/25 11:18 01/15/25 12:37 Dextrose IV 01/25/25 11:17 100 mls/hr Q4H PRN Administration GBS(+) Until Delivery Past Medical History Medical History History of chicken pox Migraine with aura Asthma Uses intrauterine device for control Placed 2022 hemorrhage Depression Exercise / Class Metabolic Activity II 4-5 Yardwork/Stairs/Walk up hill Past Family History Family History Father Glaucoma Gout Renal stones Mother Anemia Breast cancer, Onset Age: 52 Sister Renal stones Grandmother (Maternal) Spinal muscular atrophy type III Grandmother (Paternal) Glaucoma Migraine headache Breast cancer, Onset Age: 75 Denies family history of Ovarian cancer Prostate cancer Diabetes Myocardial infarction Lung cancer Colorectal cancer Hypertension Stroke Past Surgical History Surgical History History of laparoscopy S/P appendectomy Past Anesthesia History No Hx of Anesthesia Complications and No Family Hx of Anesthesia Complications History of PONV No Hx of PONV and No Hx of Motion Sickness Social History Smoking Status: Never smoker Do You Dip or Chew Tobacco: No Hx Alcohol Use: No Alcohol type: beer, wine and hard liquor Hx Substance Use: No substance use type: does not use Review of Systems denies fever/cough/ colds/ chest pain/ SOB/ DENISE denies DENISE Physical Exam Vital Signs Last Vital Signs Temp 36.7 C 01/15/25 13:46 Pulse 82 01/15/25 14:58 Resp 18 01/15/25 15:00 BP 118/73 01/15/25 14:51 Pulse Ox 100 01/15/25 14:58 ENMT Mouth: no TMJ abnormality and no dentition abnormality Thyromental Distance: > or= 3.5 Finger Breadths Mallampati Class: II Neck neck extension not limited Respiratory normal respiratory effort; no respiratory distress Auscultation: lungs clear to auscultation bilaterally Cardiovascular Rate/Rhythm: regular rate and regular rhythm Neurologic moves all extremities Psychiatric Orientation: alert and oriented x 3 Testing Laboratory Results 01/15/25 08:35 Blood Type A Positive 01/15/25 08:35 Antibody Screen NEGATIVE 01/15/25 08:35 01/15/25 01/15/25 11:02 08:48 POC Glucose 77 145 H
[2025-01-15] MEDS: BUPIVACAINE 0.25% PF 30 ML VIAL ONE (13:33)
[2025-01-15] MEDS: LIDOCAINE 2%/EPINEPHRINE 1:200,000 20 ML PF ONE (13:34)
[2025-01-15] MEDS: fentANYL 2 MCG/ML BUPIVacaine 0.125%-NSS 100ML BAG ONE (13:34)
--- NOTE | 2025-01-15 17:19 | Delivery Summary ---
Vaginal Delivery Summary Date of Service January 15, 2025 Vaginal Delivery Summary DIAGNOSES: 1. Hudson intrauterine at 39w2d gestation. 2. Spontaneous onset of labor. 3. Group B Streptococcus Pos. PROCEDURE: Spontaneous vaginal delivery without laceration. SURGEON: Zainab Arriaza MD. CERTIFIED ALCOHOL AND DRUG COUNSELOR: None. ESTIMATED BLOOD LOSS: 259 mL. COMPLICATIONS: None. PLACENTA: Spontaneous and intact with a 3-vessel cord. DISPOSITION: Stable to labor and delivery. DESCRIPTION: The patient pushed well and brought the head to in DOA position. The infant's head was allowed to deliver with contraction force and no further active pushing, with the perineum protected during this time. There was no nuchal cord. The right shoulder was anterior. The shoulders and body delivered without any difficulty, and the was placed on the maternal abdomen. It was vigorous and moving all extremities, and making respiratory efforts. The cord was doubly clamped by the MD and then cut by the FOB. The placenta delivered spontaneously and was noted to be intact and with a 3VC. The cervix, vagina and perineum were examined and were found to be without defect requiring repair. The fundus was firm and lochia minimal immediately after delivery. [facility] – [place], [place] Vaginal Delivery Charge Vaginal Delivery Codes: 39060 global code for the antepartum, delivery, and post-
[2025-01-15] MEDS ORDERED: DIPHTHER/TETAN/PERTUS Vaccine (Tdap, Adol/Adult) 0.5mL IM ONE (17:35)
[2025-01-15] MEDS ORDERED: HYDROCORTISONE ACETATE 25 MG SUPP PR PRN (17:35)
[2025-01-15] MEDS ORDERED: BENZOCAINE 20% SPRY 85 APPLN/85 GM CAN EXT PRN (17:35)
--- NOTE | 2025-01-15 18:23 | Anesthesia Procedure Note ---
Date of Service January 15, 2025 Anesthesia Post Epidural Note Vital Signs Vital Signs: Temp Pulse Resp BP Pulse Ox 36.9 C 93 H 20 119/67 99 01/15/25 15:35 01/15/25 18:20 01/15/25 18:05 01/15/25 18:20 01/15/25 17:13 Pain Intensity Bilateral Abdomen: Pain Intensity: 2 Notes Mental Status: alert / awake / arousable and participated in evaluation Nausea / Vomiting: adequately controlled Pain: adequately controlled Airway Patency, RR, SpO2: stable & adequate BP & HR: stable & adequate Hydration State: stable & adequate Neuraxial Anesthesia: was administered and sensory block resolved Anesthetic Complications: no major complications apparent and Pt Satisfied with anesthetic care Epidural: Removed without complications and With tip intact
[2025-01-15] MEDS: SODIUM CHLORIDE 0.9% PF INJ 10 ML VIAL ONE (18:41)
[2025-01-15] MEDS: ACETAMINOPHEN 325 MG TAB PO PRN (20:35)
[2025-01-15] MEDS: DOCUSATE SODIUM 100 MG CAP PO SCH (21:13)
[2025-01-16] MEDS: IBUPROFEN 600 MG TAB PO PRN (03:22)
--- NOTE | 2025-01-16 05:36 | Obstetrical Progress Note ---
Date of Service <Ry Romero MD - Last Filed: 01/16/25 07:13> January 16, 2025 Assessment & Plan <Ry Romero MD - Last Filed: 01/16/25 07:13> (1) care and examination: 34yo post- day 1 s/p Fells well today Continue post- care Encourage ambulation and Pain controlled with Ibuprofen, Tylenol Vital Signs and Hgb stable Discharge home today, follow up with OB provider in 6 weeks D/c instructions discussed <Zainab Arriaza MD - Last Filed: 01/16/25 07:32> (1) care and examination: Subjective <Ry Romero MD - Last Filed: 01/16/25 07:13> 34yo post- day 1 s/p Ambulation: Ambulating normally Voiding: No voiding problems Passing Gas:: Yes Diet Tolerance:: regular diet Lochia:: Small Feeding Type:: Current Pain Level: 4/10 controlled with Tylenol, Ibuprofen Resting comfortably this AM in NAD. Denies WEATHERS, CP, SOB, N/V/D, LE pain/swelling. Physical Exam <Ry Romero MD - Last Filed: 01/16/25 07:13> General: patient resting comfortably, NAD, non-toxic in appearance, answers questions appropriately Skin: warm, dry, intact Heart: S1/S2 heard, regular, no m/r/g Lungs: equal air entry bilaterally, no rales/rhonchi/wheezes Abd: Normoactive BS, soft, NT/ND, uterine fundus firm at umbilicus Ext: warm, no clubbing/cyanosis or edema, Caleb's neg Neuro: nonfocal, patient AAOx4, speech intact, no facial droop, moving all extremities on command Results & Data <Ry Romero MD - Last Filed: 01/16/25 07:13> Vital Signs (Past 12 Hours) Vital Signs Temp Pulse Pulse Resp BP BP Pulse Ox 01/16/25 03:26 36.5 C 92 H 16 116/77 97 01/15/25 23:31 36.9 C 90 18 123/82 98 01/15/25 20:40 36.8 C 93 H 18 117/77 97 01/15/25 19:53 108 H 125/73 01/15/25 19:43 103 H 128/72 01/15/25 19:33 98 H 121/69 01/15/25 19:23 93 H 120/67 01/15/25 19:13 104 H 124/70 01/15/25 19:03 85 114/66 01/15/25 19:00 36.8 C 18 01/15/25 18:53 96 H 120/66 01/15/25 18:43 96 H 124/66 01/15/25 18:32 99 H 121/72 01/15/25 18:20 93 H 20 119/67 01/15/25 18:20 93 H 119/67 01/15/25 18:06 100 H 130/78 01/15/25 18:05 100 H 20 130/78 01/15/25 17:52 86 124/60 01/15/25 17:50 86 20 124/60 01/15/25 17:36 90 116/70 01/15/25 17:35 90 20 116/70 O2 Del Method 01/16/25 03:26 Room Air 01/15/25 23:31 Room Air 01/15/25 20:40 Room Air 01/15/25 19:53 01/15/25 19:43 01/15/25 19:33 01/15/25 19:23 01/15/25 19:13 01/15/25 19:03 01/15/25 19:00 01/15/25 18:53 01/15/25 18:43 01/15/25 18:32 01/15/25 18:20 01/15/25 18:20 01/15/25 18:06 01/15/25 18:05 01/15/25 17:52 01/15/25 17:50 01/15/25 17:36 01/15/25 17:35 Supervising Physician <Zainab Arriaza MD - Last Filed: 01/16/25 07:32> Co-Signing Physician Notes Resident Physician Supervision Note: I interviewed and examined the patient. Discussed with Dr. Romero and agree with findings and plan as documented in the note. Any exceptions or clarifications are listed here: [ ] Documented By: Zainab Arriaza MD, FACOG Resident Activity Tracking <Ry Romero MD - Last Filed: 01/16/25 07:13> Resident Involvement: Resident Care Provided Care Provided: OB Delivery
[2025-01-16 06:04] LABS: Hematocrit (blood only) 33.2 % (37.0-47.0); Hemoglobin 11.5 g/dl (12.0-16.0); Mean Corpuscular Hemoglobin 29.8 pg (25.0-34.0); Mean Corpuscular Volume 86.0 fL (80.0-100.0); Platelet Count 116 K/uL (130-400); RDW Standard Deviation 43.2 fL (36.4-46.3); Red Blood Count 3.86 M/uL (4.20-5.40); White Blood Count 10.80 K/ul (4.8-10.8)
[2025-01-16] MEDS: PRENATAL VITAMIN 1 TAB PO SCH (07:25)
[2025-01-16 11:11] VITALS: TEMP 98.1; O2SAT 98
[2025-01-16 16:08] VITALS: BP 118/81; PULSE 90; RESP 20
== END 2025-01-16 18:05 | disposition home or self-care (01) | DRG 807 ==
LOC: 4S1 07:51 → 4E2 20:42